=== PATIENT | female | born 1930 | race Caucasian/White ===

== ENCOUNTER 2017-06-04 14:16 | Inpatient (IN) | payer MEDICARE, OTHER ==
[~2017-06-04] VITALS: Ht 152.4 cm; Wt 59.0 kg
[~2017-06-04 14:16] MED LIST: ABILIFY 10MG TA10 MG PO; ACIPHEX20 MG PO; AMBIEN CR12.5 MG PO; AMOXICILLIN 50500 MG PO; ANTIVERT 25MG25 MG PO; ANTIVERT PO; ANTIVERT/2525 M1 PO; ARICEPT10 MG PO; ARTIFICIAL TEAR15 M7 OP; ATIVAN 0.50.5 MG/TAB PO; ATIVAN 1MG T1 MG/TAB PO; ATIVAN0.5 MG PO; BENADRYL25 M2 PO; BENGAY ARTHRITI1 CRE TP; CALCIUM CARBON500 M1 PO; CEFTIN500 MG PO; CELEBREX 200MG200 MG PO; CELEBREX200 MG PO; CLARITIN 1010 MG/TAB PO; CLARITIN LIQUI-10 MG PO; CRANBERRY1000 MG PO; CRESTOR20 MG PO; DETROL; DETROL 2MG TAB2 MG PO; DETROL LA4 PO; IMODIUM 2MG CAPS2 MG PO; KLONOPIN 0.5MG0.5 MG PO; LAMICTAL 100MG100 MG PO; LAMICTAL 25MG T25 MG PO; LAMICTAL PO; LAMICTAL XR50 MG PO; LATANOPROST; LEXAPRO 10MG10 MG PO; LEXAPRO 5MG5 MG PO; LEXAPRO10 MG PO; LIDODERM 5% PATC1 EA TP; LIDODERM PATCH TP; LOPERAMIDE2 MG PO; MACROBID 1100 MG/CAP PO; MECLIZINE HCL25 M1 PO; MILK OF MA400 MG/5 M PO; MILK OF MA400 MG/51 PO; MUCINEX 60600 MG/TA1 PO; MULTIVITAMIN1 TA1 PO; MVI; MYLANTA 150 ML150 M1 PO; MYLANTA MAXIMU355 ML PO; NATURAL TEARS; NORCO 325 MG-101 TAB PO; NORCO 325 MG-51 TAB PO; NORVASC 5MG5 MG/TAB PO; NORVASC5 MG PO; PHENERGAN W/CO120 M1 PO; PRAVACHOL 40MG40 MG PO; PRILOSEC 20MG20 MG PO; REMERON30 MG PO; RISPERDAL 0.5M0.5 MG PO; RISPERDAL 1M1 MG/TAB PO; SEROQUEL 2525 MG/TAB PO; SEROQUEL PO; SEROQUEL25 MG PO; SEROQUEL50 MG PO; SYNTHROID 0.10.15 MG PO; SYNTHROID0.088 MG PO; SYNTHROID0.088 MG/T PO; SYNTHROID0.1 MG PO; SYNTHROID0.1 MG/TAB PO; SYNTHROID0.125 MG/T PO; TEARS NATURALE15 M1 OP; THERA TABS1 TA1 PO; TRICOR145 MG PO; TRIMPEX100 MG PO; TYLENOL 500MG500 MG PO; TYLENOL EXTRA500 M1 PO; ULTRAM 50MG TAB50 MG; ULTRAM 50MG TAB50 MG PO; UNABLE; VESICARE; VESICARE10 MG PO; VITAMIN D31000 I1 PO; VITAMIN D32000 IU PO; WELLBUTRIN PO; WELLBUTRIN SR150 M1 PO; WELLBUTRIN SR150 MG PO; XALATAN EYE DROPS OU; ZANTAC 150MG T150 MG PO; ZOCOR 80MG80 MG PO; ZOCOR80 MG PO; ZOFRAN 4MG T4 MG/TAB PO
[2017-06-04 15:00] LABS: BASO # 0.1 (0.0-0.2); BASO % 0.8 % (0.0-2.0); EOS # 0.2 (0.0-0.7); EOS % 2.6 % (0-4.0); GRAN # 4.5 (1.4-6.5); GRAN % 62.1 % (42.2-75.2); LYMPH # 1.7 (1.2-3.4); LYMPH % 23.6 % (20.0-51.0); MEAN CELL VOLUME 85 fl (80.0-100.0); MEAN CORPUSCULAR HGB CONC 31 g/dl (33.0-37.0); MEAN PLATELET VOLUME 8.9 fl (7.4-10.4); MONO # 0.8 (0.1-0.6); MONO % 10.6 % (1.7-9.3); PLATELET COUNT 430 K/mm3 (130-400); RED BLOOD COUNT 4.02 M/mm3 (4.10-5.30); REDCELL DISTRIBUTION WIDTH-CV 18.5 % (11.5-14.5); WHITE BLOOD COUNT 7.3 K/mm3 (4.8-10.8)
[2017-06-04 15:01] LABS: HEMATOCRIT 34.2 % (37.0-47.0); HEMOGLOBIN 10.6 g/dl (12.5-16.0); MEAN CORPUSCULAR HEMOGLOBIN 26 pg (27.0-31.0)
[2017-06-04 15:29] LABS: ADJUSTED CALCIUM 9.6 mg/dL (8.4-10.2); ALANINE AMINOTRANSFERASE 25 U/L (9-52); ALBUMIN 3.3 gm/dL (3.5-5.0); ALKALINE PHOSPHATASE 74 U/L (50-136); ANION GAP 8 mmol/L (7-16); BILIRUBIN,TOTAL 0.4 mg/dL (0.0-1.0); BLOOD UREA NITROGEN 23 mg/dL (7-17); CARBON DIOXIDE 27 mmol/L (22-30); CHLORIDE 105 mmol/L (98-107); CREATININE, serum 1.79 mg/dL (0.52-1.25); GLUCOSE 94 mg/dL (74-106); POTASSIUM 4.8 mmol/L (3.4-5.0); SODIUM 140 mmol/L (137-145); TOTAL PROTEIN 6.4 gm/dL (6.4-8.2)
[2017-06-04 15:44] LABS: PH 6 (5-8); SQUAMOUS EPITHELIAL None Seen /hpf; URINE APPEARANCE Clear; URINE BACTERIA None Seen /hpf; URINE BILIRUBIN Negative (NEGATIVE); URINE BLOOD Negative (NEGATIVE); URINE COLOR Yellow; URINE GLUCOSE Negative (NEGATIVE); URINE KETONE Negative (NEGATIVE); URINE RBC 0-2 /hpf; URINE UROBILINOGEN Negative (NEGATIVE); URINE WBC 0-2 /hpf
[2017-06-04 15:46] LABS: TROPONIN-I < 0.012 ng/mL (0.000-0.034)
[2017-06-04 17:16] LABS: INR 1.1 (0.8-3.0); PROTHROMBIN TIME 11.7 SECONDS (9.7-12.8)
[2017-06-04 17:19] LABS: PARTIAL THROMBOPLASTIN TIME 33.5 SECONDS (26.0-37.0)
[2017-06-04 18:25] VITALS: BP 143/68; PULSE 73; TEMP 98.5
[2017-06-04 20:15] VITALS: BP 108/57; PULSE 81; TEMP 98.3
[2017-06-04 23:09] VITALS: BP 118/50; PULSE 77; TEMP 98.1
[2017-06-05] VITALS (9 sets, daily range): BP systolic 95–143; BP diastolic 44–58; PULSE 65–96; TEMP 97.6–98.3
[2017-06-05 07:34] LABS: MEAN CELL VOLUME 86 fl (80.0-100.0); MEAN CORPUSCULAR HGB CONC 30 g/dl (33.0-37.0); PLATELET COUNT 385 K/mm3 (130-400); RED BLOOD COUNT 3.94 M/mm3 (4.10-5.30); REDCELL DISTRIBUTION WIDTH-CV 18.9 % (11.5-14.5); WHITE BLOOD COUNT 5.7 K/mm3 (4.8-10.8)
[2017-06-05 07:36] LABS: HEMATOCRIT 33.9 % (37.0-47.0); HEMOGLOBIN 10.2 g/dl (12.5-16.0); MEAN CORPUSCULAR HEMOGLOBIN 26 pg (27.0-31.0)
[2017-06-05 07:53] LABS: CALCIUM 8.6 mg/dL (8.4-10.2); CREATININE, serum 1.44 mg/dL (0.52-1.25)
[2017-06-06 03:17] VITALS: BP 112/55; PULSE 69; TEMP 97.7
[2017-06-06 07:09] VITALS: BP 124/43; PULSE 78; TEMP 97.7
[2017-06-06 08:12] VITALS: PULSE 80
[2017-06-06 10:06] LABS: CALCIUM 8.6 mg/dL (8.4-10.2); CREATININE, serum 1.22 mg/dL (0.52-1.25); POTASSIUM 4.2 mmol/L (3.4-5.0)
[2017-06-06] MEDS ORDERED: ASPI325T6 PO (11:16)
== END 2017-06-06 11:56 | DRG 69 ==
LOC: COL.ER 14:16 → MEDICAL 16:33
PROVIDERS: Emergency Medicine; Internal Medicine Cardiovascular Disease; Physician Assistant
DX: G45.9 Transient cerebral ischemic attack, unspecified (principal); Z66 Do not resuscitate; F03.90 Unspecified dementia, unspecified severity, without behavioral disturbance, psychotic disturbance, mood disturbance, and anxiety; F32.9 Major depressive disorder, single episode, unspecified; Z87.891 Personal history of nicotine dependence; G62.9 Polyneuropathy, unspecified; N28.9 Disorder of kidney and ureter, unspecified
CPT/HCPCS: 99223-AI; 99232-AI; 99239; J1650; J7030

== ENCOUNTER 2017-08-30 11:19 | Outpatient (RCR) | payer MEDICARE, OTHER ==
[2007-11-16 12:01] VITALS: BP 141/68
[~2017-08-30] VITALS: Ht 152.4 cm; Wt 57.2 kg
[2017-08-30] VITALS (10 sets, daily range): BP systolic 131–153; BP diastolic 55–88; PULSE 79–89; TEMP 97.8–98.7
[~2017-08-30 11:19] MED LIST changes: +ASPI325T6 PO
== END 2017-08-30 17:41 | disposition home or self-care (01) ==
LOC: EUO 11:19
DX: D64.9 Anemia, unspecified (principal)
CPT/HCPCS: J7050; P9016

== ENCOUNTER 2020-05-07 13:27 | Emergency (ER) | payer MEDICARE, OTHER ==
[2007-11-16 12:01] VITALS: BP 141/68
[~2020-05-07] VITALS: Ht 160 cm; Wt 52.7 kg
[2020-05-07 13:54] VITALS: TEMP 98.6
[2020-05-07 14:41] LABS: BASO % 0.4 % (0.0-2.0); EOS # 0.1 (0.0-0.7); EOS % 0.8 % (0-4.0); GRAN # 5.3 (1.4-6.5); LYMPH # 0.9 (1.2-3.4); LYMPH % 12.8 % (20.0-51.0); MEAN CELL VOLUME 77 fl (80.0-100.0); MEAN CORPUSCULAR HGB CONC 29 g/dl (33.0-37.0); MEAN PLATELET VOLUME 8.6 fl (7.4-10.4); MONO # 0.8 (0.1-0.6); MONO % 10.6 % (1.7-9.3); PLATELET COUNT 430 K/mm3 (130-400); RED BLOOD COUNT 4.14 M/mm3 (4.10-5.30); REDCELL DISTRIBUTION WIDTH-CV 17.7 % (11.5-14.5)
[2020-05-07 14:42] LABS: HEMATOCRIT 31.9 % (37.0-47.0); HEMOGLOBIN 9.2 g/dl (12.5-16.0); MEAN CORPUSCULAR HEMOGLOBIN 22 pg (27.0-31.0)
[2020-05-07 14:51] LABS: ALBUMIN 4.2 gm/dL (3.5-5.0); BILIRUBIN,TOTAL 0.4 mg/dL (0.0-1.0); CALCIUM 9.8 mg/dL (8.4-10.2); CREATININE, serum 1.46 (0.52-1.25); POTASSIUM 4.2 mmol/L (3.4-5.0); TOTAL PROTEIN 7.5 gm/dL (6.4-8.2)
[2020-05-07 15:30] VITALS: BP 148/58; PULSE 79
== END 2020-05-07 15:30 | disposition home or self-care (01) ==
LOC: COL.ER 13:27
PROVIDERS: Emergency Medicine
DX: S00.93XA Contusion of unspecified part of head, initial encounter (principal); G30.9 Alzheimer's disease, unspecified; Z79.82 Long term (current) use of aspirin; W07.XXXA Fall from chair, initial encounter; Y92.009 Unspecified place in unspecified non-institutional (private) residence as the place of occurrence of the external cause

== ENCOUNTER 2021-11-01 09:36 | Emergency (ER) | payer MEDICARE, OTHER ==
[~2021-11-01] VITALS: Ht 162.6 cm; Wt 50.0 kg
[2021-11-01 09:37] VITALS: TEMP 97.8
[2021-11-01 10:20] LABS: BASO # 0.1 K/mm3 (0.0-0.2); BASO % 1.1 % (0.0-2.0); EOS # 0.1 K/mm3 (0.0-0.7); GRAN # 3.8 K/mm3 (1.4-6.5); HEMATOCRIT 42.4 % (37.0-47.0); HEMOGLOBIN 14.2 g/dl (12.5-16.0); LYMPH # 1.1 K/mm3 (1.2-3.4); LYMPH % 19.1 % (20.0-51.0); MEAN CELL VOLUME 97 fl (80.0-100.0); MEAN CORPUSCULAR HEMOGLOBIN 32 pg (27-31); MEAN CORPUSCULAR HGB CONC 34 g/dl (33.0-37.0); MEAN PLATELET VOLUME 8.3 fl (7.4-10.4); MONO # 0.6 K/mm3 (0.1-0.6); MONO % 10.6 % (1.7-9.3); PLATELET COUNT 316 K/mm3 (130-400); RED BLOOD COUNT 4.39 M/mm3 (4.10-5.30); REDCELL DISTRIBUTION WIDTH-CV 12.3 % (11.5-14.5)
[2021-11-01 10:32] LABS: ALBUMIN 4.1 gm/dL (3.4-4.8); BILIRUBIN,TOTAL 0.7 mg/dL (0.2-1.2); C-REACTIVE PROTEIN 0.17 mg/dL (0.00-0.50); CALCIUM 9.9 mg/dL (8.4-10.2); CREATININE, serum 1.32 mg/dL (0.57-1.11); POTASSIUM 4.2 mmol/L (3.5-4.5); TOTAL PROTEIN 7.1 gm/dL (6.2-8.1)
[2021-11-01 11:30] LABS: PH 8 (5-8); URINE COLOR Amber (YELLOW)
[2021-11-01 11:31] LABS: URINE BILIRUBIN Negative (NEGATIVE); URINE BLOOD 3+ (NEGATIVE); URINE GLUCOSE Negative (NEGATIVE); URINE KETONE Negative (NEGATIVE); URINE NITRATE Negative (NEGATIVE); URINE PROTEIN(semi-quant) Negative (NEGATIVE); URINE UROBILINOGEN Negative (NEGATIVE)
[2021-11-01 11:32] LABS: AMORPHOUS CRYSTAL Present (NOT PRESENT); MUCOUS Present (NOT PRESENT); URINE BACTERIA Moderate /hpf (NONE SEEN); URINE RBC >50 /hpf (0-2)
[2021-11-01 11:33] LABS: URINE APPEARANCE Turbid (CLEAR/HAZY)
[2021-11-01 11:34] LABS: URINE LEUKOCYTE ESTERASE 3+ (NEGATIVE)
[2021-11-01] MEDS ORDERED: OMNICEF 300MG300 MG PO ×3 (11:54→12:41)
[2021-11-01 11:56] LABS: COLLECTION METHOD CATHETER
[2021-11-01 12:50] VITALS: BP 136/56; PULSE 70
== END 2021-11-01 12:50 | disposition home or self-care (01) ==
LOC: COL.ER 09:36
PROVIDERS: Family Medicine
DX: N39.0 Urinary tract infection, site not specified (principal); Z88.2 Allergy status to sulfonamides; Z20.822 Contact with and (suspected) exposure to COVID-19
CPT/HCPCS: J0696; J7030

== ENCOUNTER 2022-05-20 21:10 | Emergency (ER) | payer MEDICARE, OTHER ==
[~2022-05-20] VITALS: Ht 152.4 cm; Wt 45.5 kg
[~2022-05-20 21:10] MED LIST changes: +OMNICEF 300MG300 MG PO
[2022-05-20 21:13] VITALS: TEMP 98.9
[2022-05-20] MEDS ORDERED: NORCO 325 MG-51 TAB PO (21:49)
[2022-05-20 22:21] VITALS: BP 137/72; PULSE 92
== END 2022-05-20 22:23 | disposition home or self-care (01) ==
LOC: COL.ER 21:10
DX: S52.021A Displaced fracture of olecranon process without intraarticular extension of right ulna, initial encounter for closed fracture (principal); Z28.310 Unvaccinated for COVID-19; W01.0XXA Fall on same level from slipping, tripping and stumbling without subsequent striking against object, initial encounter; Y92.129 Unspecified place in nursing home as the place of occurrence of the external cause